=== PATIENT | female | born 1930 | race Two or more races ===

== ENCOUNTER → 2018-08-15 | Outpatient (CLI) | payer MEDICARE, OTHER | END | disposition home or self-care (01) | LOC: RADPV 10:41 | PROVIDERS: ATTEND Orthopaedic Surgery | DX: S52.601A Unspecified fracture of lower end of right ulna, initial encounter for closed fracture (principal); X58.XXXA Exposure to other specified factors, initial encounter; Y93.89 Activity, other specified; Y92.89 Other specified places as the place of occurrence of the external cause; Y99.8 Other external cause status ==